=== PATIENT | female | born 1985 | race Caucasian/White ===

== ENCOUNTER → 2017-05-01 | Outpatient (CLI) | payer OTHER ==
--- NOTE | 2017-05-01 18:48 | HKNOTE ---
DATE OF SERVICE: 05/01/2017 CHIEF COMPLAINT: Right knee pain. HISTORY OF PRESENT ILLNESS: This is a 31-year-old female complaining of chronic right knee pain. She states that the pain has been increasing. She denies any history of trauma. She denies any groin or back pain. She complains of popping in her knee. She denies any locking, catching. She denies any instability. She has not had any previous treatment. She has no other complaints. Gait: Nonantalgic gait. Right knee: Neutral alignment, 0-130 degrees range of motion. Stable to varus, valgus stress. Negative Diana. Negative anterior drawer. Negative posterior drawer. Apprehension with patellar testing. No subluxation. 5/5 quadriceps, tibialis anterior, hamstrings, gastroc soleus and tibialis anterior. IMPRESSION: A 31-year-old female with patellofemoral syndrome. PLAN: She will begin outpatient physical therapy. She can take cyiv-cuk-nssvyab ibuprofen. She will follow up as needed in the future. Dictated By: Pradeep Jean MD /mike/aisha /Document#: [id number]
== END | disposition home or self-care (01) ==
LOC: HKI 13:32
PROVIDERS: ATTEND Orthopaedic Surgery Adult Reconstructive Orthopaedic Surgery
DX: M25.561 Pain in right knee (principal); G89.29 Other chronic pain
CPT/HCPCS: G0463